=== PATIENT | female | born 1950 | race Caucasian/White ===

== ENCOUNTER 2024-04-08 16:11 | Emergency (ER) | payer MEDICARE ==
[~2024-04-08] VITALS: Ht 162.6 cm; Wt 86.6 kg
[2024-04-08 16:12] VITALS: TEMP 98
[2024-04-08 17:00] LABS: BASOPHILS % (AUTO) 0.9 % (0-1); EOSINOPHILS # (AUTO) 0.2 X10'3 (0-0.9); HEMATOCRIT 39.3 % (35.0-45.0); HEMOGLOBIN 13.3 g/dl (12.0-16.0); LYMPHOCYTES # (AUTO) 1.6 X10'3 (1.1-4.8); LYMPHOCYTES % (AUTO) 36.1 % (21-51); MEAN CORPUSCULAR HEMOGLOBIN 34.9 PG (27.0-31.0); MEAN CORPUSCULAR HGB CONC 33.8 g/dL (33.0-36.5); MEAN CORPUSCULAR VOLUME 103.2 FL (78-98); MEAN PLATELET VOLUME 6.9 FL (7.4-10.4); MONOCYTES # (AUTO) 0.6 X10'3 (0-0.9); MONOCYTES % (AUTO) 13.4 % (2-12); NEUTROPHILS % (AUTO) 45.6 % (42-75); PLATELET COUNT 217 X10'3 (140-440); RED BLOOD COUNT 3.81 X10'6 (4.20-5.60); RED CELL DISTRIBUTION WIDTH 20.1 % (11.5-14.5); WHITE BLOOD COUNT 4.3 X10'3 (4.5-11.0)
[2024-04-08 17:10] LABS: ALANINE AMINOTRANSFERASE 23 U/L (12-78); ALBUMIN 3.6 G/DL (3.4-5.0); ALBUMIN/GLOBULIN RATIO 0.8 (1.1-1.5); ALKALINE PHOSPHATASE 134 IU/L (46-116); ANION GAP 8 (8-16); ASPARTATE AMINO TRANSFERASE 58 U/L (10-37); BILIRUBIN,TOTAL 0.4 MG/DL (0.1-1.0); BLOOD UREA NITROGEN 9 MG/DL (7-18); BUN/CREATININE RATIO 9.9 (10.0-20.0); CALCIUM 8.4 MG/DL (8.5-10.1); CHLORIDE 109 MMOL/L (99-107); CREATININE 0.91 MG/DL (0.40-0.90); GLUCOSE 106 MG/DL (70-104); POTASSIUM 3.9 MMOL/L (3.5-5.1); SODIUM 149 MMOL/L (135-145); TOTAL PROTEIN 8.1 G/DL (6.4-8.2); eCRCL 48 ML/MIN; eGFR 61 ML/MIN
[2024-04-08 17:19] LABS: PRO BRAIN NATRIURETIC PEPTIDE 133 PG/ML (0-125)
[2024-04-08 17:21] LABS: ANISOCYTOSIS 3+; LARGE PLATELETS FEW; PLATELET ESTIMATE NORMAL
[2024-04-08 18:16] VITALS: BP 138/89; PULSE 87; O2SAT 92
[2024-04-08 18:46] VITALS: RESP 18
== END 2024-04-08 18:55 | disposition home or self-care (01) ==
LOC: ER 16:12
DX: J45.901 Unspecified asthma with (acute) exacerbation (principal)
CPT/HCPCS: 36415; 71045; 80053; 83880; 84484; 85008; 85025; 93005; 99285

== ENCOUNTER 2024-04-30 07:26 | Emergency (ER) | payer MEDICARE ==
[~2024-04-30] VITALS: Ht 167.6 cm; Wt 86.4 kg
[2024-04-30 07:32] VITALS: TEMP 98.2
[2024-04-30 11:10] LABS: BASOPHILS # (AUTO) 0.1 X10'3 (0-0.2); EOSINOPHILS # (AUTO) 0.3 X10'3 (0-0.9); EOSINOPHILS % (AUTO) 6.3 % (0-6); HEMATOCRIT 40.8 % (35.0-45.0); HEMOGLOBIN 13.7 g/dl (12.0-16.0); LYMPHOCYTES # (AUTO) 1.5 X10'3 (1.1-4.8); LYMPHOCYTES % (AUTO) 31.2 % (21-51); MEAN CORPUSCULAR HEMOGLOBIN 34.5 PG (27.0-31.0); MEAN CORPUSCULAR HGB CONC 33.7 g/dL (33.0-36.5); MEAN CORPUSCULAR VOLUME 102.4 FL (78-98); MEAN PLATELET VOLUME 6.6 FL (7.4-10.4); MONOCYTES # (AUTO) 0.5 X10'3 (0-0.9); MONOCYTES % (AUTO) 11.4 % (2-12); NEUTROPHILS # (AUTO) 2.3 X10'3 (1.8-7.7); NEUTROPHILS % (AUTO) 49.1 % (42-75); PLATELET COUNT 284 X10'3 (140-440); RED BLOOD COUNT 3.98 X10'6 (4.20-5.60); RED CELL DISTRIBUTION WIDTH 18.9 % (11.5-14.5); WHITE BLOOD COUNT 4.8 X10'3 (4.5-11.0)
[2024-04-30] MEDS ORDERED: ALBU8HFA INH (11:19)
[2024-04-30 11:27] LABS: APTT 26 SECONDS (22-32); INR 1.1 INR
[2024-04-30] MEDS: dexamethasone 4mg tablet PO ONE (11:35)
[2024-04-30] MEDS: albuterol 2.5 MG/3 ML nebule NEB ONE (11:35)
[2024-04-30 11:38] VITALS: PULSE 87; RESP 20; O2SAT 94
[2024-04-30 11:38] LABS: ALANINE AMINOTRANSFERASE 21 U/L (12-78); ALBUMIN 3.4 G/DL (3.4-5.0); ALBUMIN/GLOBULIN RATIO 0.8 (1.1-1.5); ALKALINE PHOSPHATASE 142 IU/L (46-116); ANION GAP 9 (8-16); ASPARTATE AMINO TRANSFERASE 46 U/L (10-37); BILIRUBIN,TOTAL 0.5 MG/DL (0.1-1.0); BLOOD UREA NITROGEN 11 MG/DL (7-18); BUN/CREATININE RATIO 11.8 (10.0-20.0); CALCIUM 8.8 MG/DL (8.5-10.1); CHLORIDE 104 MMOL/L (99-107); CREATININE 0.93 MG/DL (0.40-0.90); GLUCOSE 92 MG/DL (70-104); POTASSIUM 3.7 MMOL/L (3.5-5.1); SODIUM 141 MMOL/L (135-145); TOTAL CARBON DIOXIDE 28.3 MMOL/L (24-32); TOTAL PROTEIN 7.8 G/DL (6.4-8.2); eCRCL 50 ML/MIN; eGFR 59 ML/MIN
[2024-04-30 11:39] LABS: ETHANOL 223 MG/DL (<10); MAGNESIUM 1.5 MG/DL (1.5-2.4); PRO BRAIN NATRIURETIC PEPTIDE 149 PG/ML (0-125)
[2024-04-30 11:42] VITALS: PULSE 82; RESP 22; O2SAT 98
[2024-04-30 13:01] VITALS: BP 137/79; PULSE 79; RESP 19; O2SAT 95
== END 2024-04-30 13:04 | disposition home or self-care (01) ==
LOC: ER 07:28
DX: J45.901 Unspecified asthma with (acute) exacerbation (principal); E78.00 Pure hypercholesterolemia, unspecified; K21.9 Gastro-esophageal reflux disease without esophagitis; F10.129 Alcohol abuse with intoxication, unspecified; Y90.7 Blood alcohol level of 200-239 mg/100 ml
CPT/HCPCS: 36415; 71045; 80053; 83735; 83880; 84484; 85025; 85610; 85730; 94640; 99284; G0480; 80320; 94760

== ENCOUNTER 2024-05-18 19:01 | Inpatient (IN) | payer MEDICARE ==
[~2024-05-18] VITALS: Ht 167.6 cm; Wt 89.0 kg
[~2024-05-18 19:01] MED LIST: ALBU8HFA INH
[2024-05-18 19:46] LABS: BASOPHILS # (AUTO) 0.1 X10'3 (0-0.2); BASOPHILS % (AUTO) 1.2 % (0-1); EOSINOPHILS # (AUTO) 0.4 X10'3 (0-0.9); EOSINOPHILS % (AUTO) 9.3 % (0-6); HEMOGLOBIN 13.9 g/dl (12.0-16.0); LYMPHOCYTES # (AUTO) 1.3 X10'3 (1.1-4.8); LYMPHOCYTES % (AUTO) 29.7 % (21-51); MEAN CORPUSCULAR HEMOGLOBIN 34.7 PG (27.0-31.0); MEAN CORPUSCULAR HGB CONC 33.2 g/dL (33.0-36.5); MEAN CORPUSCULAR VOLUME 104.6 FL (78-98); MEAN PLATELET VOLUME 6.6 FL (7.4-10.4); MONOCYTES # (AUTO) 0.6 X10'3 (0-0.9); MONOCYTES % (AUTO) 13.2 % (2-12); NEUTROPHILS # (AUTO) 2.1 X10'3 (1.8-7.7); NEUTROPHILS % (AUTO) 46.6 % (42-75); PLATELET COUNT 212 X10'3 (140-440); RED BLOOD COUNT 4.02 X10'6 (4.20-5.60); RED CELL DISTRIBUTION WIDTH 21.7 % (11.5-14.5); WHITE BLOOD COUNT 4.5 X10'3 (4.5-11.0)
[2024-05-18 20:03] LABS: ALANINE AMINOTRANSFERASE 28 U/L (12-78); ALBUMIN 3.4 G/DL (3.4-5.0); ALBUMIN/GLOBULIN RATIO 0.8 (1.1-1.5); ALKALINE PHOSPHATASE 138 IU/L (46-116); ANION GAP 10 (8-16); ASPARTATE AMINO TRANSFERASE 53 U/L (10-37); BILIRUBIN,TOTAL 0.5 MG/DL (0.1-1.0); BLOOD UREA NITROGEN 15 MG/DL (7-18); BUN/CREATININE RATIO 17.9 (10.0-20.0); CALCIUM 8.6 MG/DL (8.5-10.1); CHLORIDE 106 MMOL/L (99-107); CREATININE 0.84 MG/DL (0.40-0.90); GLUCOSE 124 MG/DL (70-104); POTASSIUM 3.6 MMOL/L (3.5-5.1); SODIUM 145 MMOL/L (135-145); TOTAL CARBON DIOXIDE 28.6 MMOL/L (24-32); TOTAL PROTEIN 7.6 G/DL (6.4-8.2); eCRCL 56 ML/MIN; eGFR 66 ML/MIN
[2024-05-18 20:08] LABS: PLATELET ESTIMATE NORMAL
[2024-05-18] MEDS: ipratropium/albuterol 3ml nebule NEB ONE (20:08)
[2024-05-18 20:10] LABS: ANISOCYTOSIS 2+; MICROCYTOSIS FEW; PRO BRAIN NATRIURETIC PEPTIDE 89 PG/ML (0-125)
[2024-05-18 20:11] VITALS: RESP 24; O2SAT 93
[2024-05-18 20:14] VITALS: RESP 23; O2SAT 94
[2024-05-18] MEDS: magnesium sulf-water 2g/50mL 50 ML IV ONE (21:32)
[2024-05-18] MEDS: methylPREDNISolone sod succ 125mg/2ml vial IV ONE (21:32)
[2024-05-18] MEDS ORDERED: potassium Cl 40MEQ/1/2NS 520ml 520 ML IV PRN (22:30)
[2024-05-18] MEDS ORDERED: HYDROcodone/acetaminophen 10/325mg tab PO PRN (22:30)
[2024-05-18] MEDS ORDERED: ondansetron/PF 4mg/2ml inj IV PRN (22:30)
[2024-05-18] MEDS ORDERED: magnesium sulf-water 4G/100mL 100 ML IV PRN (22:30)
[2024-05-18] MEDS ORDERED: dextrose 50%-water 50ml dispensing syringe IV PRN (22:30)
[2024-05-18] MEDS ORDERED: magnesium hydroxide 30ml (MOM) UD suspension PO PRN (22:30)
[2024-05-18] MEDS ORDERED: magnesium sulf-water 2g/50mL 50 ML IV PRN (22:30)
[2024-05-18] MEDS ORDERED: potassium Cl 20 mEq SR tablet PO PRN ×2 (22:30)
[2024-05-18] MEDS ORDERED: mag hydrox/Alum hydrox/simeth 30ml oral suspension PO PRN (22:30)
[2024-05-18] MEDS ORDERED: acetaminophen 325mg tablet PO PRN (22:30)
[2024-05-18] MEDS ORDERED: HYDROcodone/acetaminophen 5mg/325mg tablet PO PRN (22:30)
[2024-05-18] MEDS ORDERED: magnesium Cl slow-release 64mg tablet PO PRN (22:30)
[2024-05-18] MEDS ORDERED: ipratropium/albuterol 3ml nebule NEB PRN (22:40)
[2024-05-18] MEDS: methylPREDNISolone sod succ 125mg/2ml vial IV SCH (22:40)
[2024-05-18 22:46] LABS: ETHANOL 244 MG/DL (<10)
[2024-05-18 22:52] LABS: MAGNESIUM 1.7 MG/DL (1.5-2.4); PHOSPHORUS 3.5 MG/DL (2.3-4.5)
[2024-05-18 23:23] VITALS: PULSE 117; RESP 18; O2SAT 93
[2024-05-18 23:29] VITALS: PULSE 108; RESP 18
[2024-05-18] MEDS: budesonide 0.5mg/2ml UD nebule IH SCH (23:41)
[2024-05-18] MEDS: ipratropium/albuterol 3ml nebule NEB SCH (23:42)
[2024-05-18] MEDS: amox tr/potassium clavulanate 500mg/125mg TAB PO SCH (23:50)
[2024-05-19] VITALS (14 sets, daily range): BP systolic 142–175; BP diastolic 81–94; PULSE 71–116; RESP 15–24; TEMP 97.9–98.2; O2SAT 91–98
[2024-05-19] MEDS: gabapentin 300mg capsule PO SCH (00:44)
[2024-05-19] MEDS: LORazepam 2 mg/ml vial IV PRN (00:45)
[2024-05-19 00:47] LABS: BILIRUBIN,URINE NEGATIVE (Neg); CLARITY,URINE CLEAR (Clear); COLOR,URINE YELLOW (Yellow); GLUCOSE, URINE NEGATIVE (Neg); KETONES,URINE NEGATIVE (Neg); LEUKOCYTE ESTERASE ,URINE NEGATIVE (Neg); NITRITES, URINE NEGATIVE (Neg); OCCULT BLOOD,URINE NEGATIVE (Neg); PH,URINE 5.5 (4.8-8.0); PROTEIN,URINE 100 mg/dl (Neg); UROBILINOGEN,URINE 0.2 E.U/dL (0.2-1.0)
[2024-05-19 00:54] LABS: URINE AMPHETAMINE SCREEN NEGATIVE (Neg); URINE BARBITUATE SCREEN NEGATIVE (Neg); URINE BENZODIAZEPINES SCREEN NEGATIVE (Neg); URINE CANNABINOID SCREEN NEGATIVE (Neg); URINE COCAINE SCREEN NEGATIVE (Neg); URINE METHADONE SCREEN NEGATIVE (Neg); URINE OPIATE SCREEN NEGATIVE (Neg); URINE PHENCYCLIDINE SCREEN NEGATIVE (Neg)
[2024-05-19 00:56] LABS: UA COLLECTION TYPE VOIDED
[2024-05-19 00:58] LABS: AMORPHOUS URATES 3+; BACTERIA,URINE NONE SEEN /HPF (Neg); RBC,URINE NONE SEEN /HPF (0-2); SQUAMOUS EPITHELIAL CELL,UR MODERATE /LPF (FEW); WBC,URINE NONE SEEN /HPF (0-4)
[2024-05-19] MEDS ORDERED: LOSA25TA41 (01:23)
[2024-05-19] MEDS ORDERED: GABA-1405 PO (01:23)
[2024-05-19] MEDS ORDERED: ESCI-8 PO (01:23)
[2024-05-19] MEDS ORDERED: FURO20TA4 PO (01:23)
[2024-05-19 06:13] LABS: BASOPHILS % (AUTO) 0.5 % (0-1); EOSINOPHILS % (AUTO) 0.1 % (0-6); HEMATOCRIT 40.9 % (35.0-45.0); HEMOGLOBIN 13.4 g/dl (12.0-16.0); LYMPHOCYTES # (AUTO) 0.2 X10'3 (1.1-4.8); LYMPHOCYTES % (AUTO) 6.7 % (21-51); MEAN CORPUSCULAR HEMOGLOBIN 34.5 PG (27.0-31.0); MEAN CORPUSCULAR HGB CONC 32.8 g/dL (33.0-36.5); MEAN CORPUSCULAR VOLUME 105.2 FL (78-98); MEAN PLATELET VOLUME 6.9 FL (7.4-10.4); MONOCYTES % (AUTO) 0.6 % (2-12); NEUTROPHILS # (AUTO) 3.3 X10'3 (1.8-7.7); NEUTROPHILS % (AUTO) 92.1 % (42-75); PLATELET COUNT 206 X10'3 (140-440); RED BLOOD COUNT 3.89 X10'6 (4.20-5.60); RED CELL DISTRIBUTION WIDTH 21.6 % (11.5-14.5); WHITE BLOOD COUNT 3.6 X10'3 (4.5-11.0)
[2024-05-19 06:33] LABS: ALANINE AMINOTRANSFERASE 23 U/L (12-78); ALBUMIN/GLOBULIN RATIO 0.7 (1.1-1.5); ALKALINE PHOSPHATASE 143 IU/L (46-116); ANION GAP 14 (8-16); ASPARTATE AMINO TRANSFERASE 50 U/L (10-37); BILIRUBIN,TOTAL 0.6 MG/DL (0.1-1.0); BLOOD UREA NITROGEN 13 MG/DL (7-18); BUN/CREATININE RATIO 13.3 (10.0-20.0); CALCIUM 8.2 MG/DL (8.5-10.1); CHLORIDE 103 MMOL/L (99-107); CHOL/HDL RATIO 2.4 (0.00-4.99); CHOLESTEROL 212 MG/DL (0-200); CREATININE 0.98 MG/DL (0.40-0.90); GLUCOSE 254 MG/DL (70-104); HDL CHOLESTEROL 89 MG/DL (35-60); POTASSIUM 4.1 MMOL/L (3.5-5.1); SODIUM 139 MMOL/L (135-145); TOTAL PROTEIN 7.3 G/DL (6.4-8.2); TRIGLYCERIDES 86 MG/DL (20-135); eCRCL 48 ML/MIN; eGFR 56 ML/MIN
[2024-05-19 07:10] LABS: LDL CHOLESTEROL 107 MG/DL (50-100)
[2024-05-19] MEDS: K and/or MAG REPLACEMENT MC SCH (08:00)
[2024-05-19] MEDS: fluconazole 100mg tablet PO SCH (08:12)
[2024-05-19] MEDS: folic acid 1mg/0.2ml inj IV SCH (08:22)
[2024-05-19] MEDS: thiamine 100mg/ml 2ml inj. IV SCH (08:22)
[2024-05-19] MEDS: enoxaparin 40mg/0.4ml syringe SUBCUT SCH (08:25)
[2024-05-19] MEDS: terbinafine cream 30gm TP SCH (08:26)
[2024-05-19] MEDS: ipratropium/albuterol 3ml nebule NEB SCH (08:46)
[2024-05-19] MEDS: CefTRIAXone/D5W-Rocephin 1gm 50 ML IV SCH (13:16)
[2024-05-19 13:40] LABS: D-DIMER 2.09 MG/L FEU (0-0.50)
[2024-05-19 13:52] LABS: CREATINE KINASE 79 U/L (26-192); LIPASE 15 U/L (16-77); PHOSPHORUS 2.3 MG/DL (2.3-4.5); THYROID STIMULATING HORMONE 0.41 ulU/ml (0.34-4.50)
[2024-05-19] MEDS: azithromycin/NS 500mg/250ml 250 ML IV SCH (14:19)
[2024-05-20] VITALS (12 sets, daily range): BP systolic 128–165; BP diastolic 74–90; PULSE 64–89; RESP 16–22; TEMP 97–98.6; O2SAT 94–98
[2024-05-20 05:59] LABS: BASOPHILS % (AUTO) 0.1 % (0-1); EOSINOPHILS % (AUTO) 0 % (0-6); HEMATOCRIT 37.9 % (35.0-45.0); HEMOGLOBIN 12.9 g/dl (12.0-16.0); LYMPHOCYTES # (AUTO) 0.3 X10'3 (1.1-4.8); LYMPHOCYTES % (AUTO) 4.7 % (21-51); MEAN CORPUSCULAR HEMOGLOBIN 35.6 PG (27.0-31.0); MEAN CORPUSCULAR HGB CONC 34.1 g/dL (33.0-36.5); MEAN CORPUSCULAR VOLUME 104.4 FL (78-98); MEAN PLATELET VOLUME 7.2 FL (7.4-10.4); MONOCYTES # (AUTO) 0.3 X10'3 (0-0.9); NEUTROPHILS # (AUTO) 6.2 X10'3 (1.8-7.7); NEUTROPHILS % (AUTO) 91.2 % (42-75); PLATELET COUNT 195 X10'3 (140-440); RED BLOOD COUNT 3.63 X10'6 (4.20-5.60); RED CELL DISTRIBUTION WIDTH 21.2 % (11.5-14.5); WHITE BLOOD COUNT 6.8 X10'3 (4.5-11.0)
[2024-05-20 06:20] LABS: ALANINE AMINOTRANSFERASE 24 U/L (12-78); ALBUMIN 3.1 G/DL (3.4-5.0); ALBUMIN/GLOBULIN RATIO 0.7 (1.1-1.5); ALKALINE PHOSPHATASE 120 IU/L (46-116); ANION GAP 9 (8-16); ASPARTATE AMINO TRANSFERASE 29 U/L (10-37); BILIRUBIN,TOTAL 0.8 MG/DL (0.1-1.0); BLOOD UREA NITROGEN 19 MG/DL (7-18); BUN/CREATININE RATIO 19.8 (10.0-20.0); CALCIUM 8.7 MG/DL (8.5-10.1); CHLORIDE 100 MMOL/L (99-107); CREATININE 0.96 MG/DL (0.40-0.90); GLUCOSE 291 MG/DL (70-104); SODIUM 136 MMOL/L (135-145); TOTAL CARBON DIOXIDE 27.1 MMOL/L (24-32); TOTAL PROTEIN 7.3 G/DL (6.4-8.2); eCRCL 49 ML/MIN; eGFR 57 ML/MIN
[2024-05-20] MEDS: gabapentin 300mg capsule PO SCH (19:34)
[2024-05-20] MEDS ORDERED: LORazepam 2 mg/ml vial IV PRN (22:30)
[2024-05-20] MEDS ORDERED: DEXTROSE 15 GM of carb/4 tabs (each vial/BOTTLE has 4 tablets) PO PRN ×2 (22:55)
[2024-05-20] MEDS ORDERED: dextrose 50%-water 50ml dispensing syringe IV PRN ×2 (22:55)
[2024-05-20] MEDS ORDERED: glucagon, human recombinant 1mg kit SUBCUT PRN (22:55)
[2024-05-20] MEDS: INSULIN LISPRO 100 UNIT/ML INSULN.PEN MULTI-DOSE SQ ONE (23:48)
[2024-05-21 05:58] LABS: BASOPHILS % (AUTO) 0 % (0-1); EOSINOPHILS % (AUTO) 0 % (0-6); HEMATOCRIT 39.2 % (35.0-45.0); HEMOGLOBIN 13.2 g/dl (12.0-16.0); LYMPHOCYTES # (AUTO) 0.3 X10'3 (1.1-4.8); LYMPHOCYTES % (AUTO) 3.3 % (21-51); MEAN CORPUSCULAR HEMOGLOBIN 35.3 PG (27.0-31.0); MEAN CORPUSCULAR HGB CONC 33.7 g/dL (33.0-36.5); MEAN CORPUSCULAR VOLUME 104.5 FL (78-98); MEAN PLATELET VOLUME 7.8 FL (7.4-10.4); MONOCYTES # (AUTO) 0.3 X10'3 (0-0.9); MONOCYTES % (AUTO) 3.9 % (2-12); NEUTROPHILS # (AUTO) 8.1 X10'3 (1.8-7.7); NEUTROPHILS % (AUTO) 92.8 % (42-75); PLATELET COUNT 196 X10'3 (140-440); RED BLOOD COUNT 3.75 X10'6 (4.20-5.60); WHITE BLOOD COUNT 8.7 X10'3 (4.5-11.0)
[2024-05-21 06:00] VITALS: BP 173/87; PULSE 64; RESP 18; TEMP 97.5; O2SAT 96
[2024-05-21 06:59] LABS: ALANINE AMINOTRANSFERASE 23 U/L (12-78); ALBUMIN 3.1 G/DL (3.4-5.0); ALBUMIN/GLOBULIN RATIO 0.7 (1.1-1.5); ALKALINE PHOSPHATASE 132 IU/L (46-116); ANION GAP 9 (8-16); ASPARTATE AMINO TRANSFERASE 31 U/L (10-37); BILIRUBIN,TOTAL 0.8 MG/DL (0.1-1.0); BLOOD UREA NITROGEN 25 MG/DL (7-18); BUN/CREATININE RATIO 22.5 (10.0-20.0); CALCIUM 8.6 MG/DL (8.5-10.1); CHLORIDE 97 MMOL/L (99-107); CREATININE 1.11 MG/DL (0.40-0.90); GLUCOSE 329 MG/DL (70-104); POTASSIUM 3.8 MMOL/L (3.5-5.1); SODIUM 132 MMOL/L (135-145); TOTAL CARBON DIOXIDE 25.8 MMOL/L (24-32); TOTAL PROTEIN 7.3 G/DL (6.4-8.2); eCRCL 42 ML/MIN; eGFR 48 ML/MIN
[2024-05-21] MEDS: INSULIN LISPRO 100 UNIT/ML INSULN.PEN MULTI-DOSE SQ SCH (08:01)
[2024-05-21 08:41] VITALS: PULSE 80; RESP 24; O2SAT 95
[2024-05-21 08:53] VITALS: PULSE 86; RESP 20
[2024-05-21 10:00] VITALS: BP 144/86; PULSE 100; RESP 20; TEMP 98.6; O2SAT 96
[2024-05-21] MEDS ORDERED: hydrALAZINE 20mg/ml inj. IV PRN (13:45)
[2024-05-21] MEDS ORDERED: FLUT1DIS4 INH (13:47)
[2024-05-21] MEDS ORDERED: PRED10TA23 PO (13:47)
[2024-05-21] MEDS ORDERED: CEFD300C3 PO (13:47)
[2024-05-21] MEDS ORDERED: NOR5T PO (13:48)
[2024-05-21] MEDS: insulin glargine (Lantus) VIAL- multi-dose SQ ONE (14:16)
[2024-05-21 14:25] VITALS: BP_SYST 173
[2024-05-21] MEDS: losartan 25mg tablet PO SCH (14:25)
[2024-05-21] MEDS: LORazepam 1 MG tablet PO PRN (14:25)
[2024-05-21 14:26] VITALS: PULSE 80
[2024-05-21] MEDS: amLODIPine 5mg tablet PO SCH (14:26)
[2024-05-22] MEDS ORDERED: LORazepam 2 mg/ml vial IV PRN (22:30)
[2024-05-22] MEDS ORDERED: LORazepam 1 MG tablet PO PRN (22:30)
[2024-05-23] MEDS ORDERED: folic acid 1mg tablet PO SCH (08:00)
[2024-05-23] MEDS ORDERED: thiamine 100mg tablet PO SCH (08:00)
[2024-05-26] MEDS ORDERED: CHLO25CA10 PO (15:27)
[2024-05-26] MEDS ORDERED: FOLI1TAB27 PO (16:06)
[2024-05-26] MEDS ORDERED: CEFD300C3 PO (16:06)
[2024-05-26] MEDS ORDERED: thiamine tablet PO (16:06)
[2024-05-26] MEDS ORDERED: PRED10TA23 PO (16:07)
== END 2024-05-21 17:48 | disposition home or self-care (01) | DRG 189 ==
LOC: ER 19:02 → ED HOLD 22:36 → EDBEDREQ 23:45 → ORTHO 4S 05-19 00:22
PROVIDERS: ADMIT Internal Medicine; ATTEND Family Medicine
PROC: CB121ZZ Planar Nuclear Medicine Imaging of Lungs and Bronchi using Technetium 99m (Tc-99m) (ICD-10-PCS; principal; 2024-05-21)
DX: J96.01 Acute respiratory failure with hypoxia (principal); J45.901 Unspecified asthma with (acute) exacerbation; F32.A Depression, unspecified; G62.9 Polyneuropathy, unspecified; Z20.822 Contact with and (suspected) exposure to COVID-19; E66.811 Obesity, class 1; G89.29 Other chronic pain; Z60.2 Problems related to living alone; K21.9 Gastro-esophageal reflux disease without esophagitis; F10.20 Alcohol dependence, uncomplicated; B35.8 Other dermatophytoses; E78.00 Pure hypercholesterolemia, unspecified; I10 Essential (primary) hypertension; Z68.31 Body mass index [BMI] 31.0-31.9, adult; Z87.891 Personal history of nicotine dependence; Z88.5 Allergy status to narcotic agent
CPT/HCPCS: 36415; 71045; 78582; 80053; 80061; 80305; 80320; 81001; 82550; 82948; 83036; 83690; 83735; 83880; 84100; 84145; 84443; 84484; 85008; 85025; 85379; 87081; 87502; 87503; 87811; 93005; 94640; 94760; 97116; 97162; 97530; 99285; A4615; A6250; A6258; A9539; A9540; G0378; J0456; J0696; J1650; J1815; J2060; J2919; J3411; J3490; J7040

== ENCOUNTER 2025-01-27 02:57 | Emergency (ER) | payer MEDICARE ==
[~2025-01-27] VITALS: Ht 167.6 cm; Wt 93.6 kg
[~2025-01-27 02:57] MED LIST changes: -ALBU8HFA INH; +ALBU90AE INH; +CEFD300C3 PO; +ESCI10TA PO; +FAMO20TA8 PO; +FLUT1DIS4 INH; +FOLI1TAB27 PO; +FURO20TA4 PO; +GABA-1405 PO; +LACT1CAP74 PO; +LOSA25TA41; +PRED10TA23 PO; +thiamine tablet PO
--- NOTE | 2025-01-27 03:05 | Physician Documentation ---
History of Present Illness ~ Stated Complaint: SOB Time Seen by MD: 03:05 Primary Medical Doctor: OMAR CALDERON AT [facility] 74-year-old female, history of asthma, on 2 L chronic oxygen at home, presenting with shortness of breath Per EMS, the patient arrives from [facility], where she reported shortness of breath. They say that she had clear lung sounds, but it cleared quite anxious, intermittently tearful, intermittently screaming. No treatments given. Here in the ED, the patient does appear quite anxious. She tells me that it is difficult to breathe and she has discomfort in her chest. She has been using her nebulizers at home without relief. She denies any fevers, congestion, productive cough, abdominal pain, nausea vomiting or diarrhea, leg pain or swelling Per chart review, the patient was admitted and discharged from the hospital 6 days ago, for an asthma exacerbation and possible pneumonia. Medication Reconciliation Allergies: Coded Allergies: codeine (Verified Allergy, Intermediate, HALLUCINATIONS, 01/27/25) Scheduled Escitalopram Oxalate (Lexapro), 1 TAB PO DAILY, (Reported) Famotidine (Famotidine), 2 TAB PO HS, (Reported) Fluticasone/Salmeterol (Advair 250-50 Diskus), 1 PUFFS INH Q12H Folic Acid* (Folic Acid*), 1 MG PO DAILY Furosemide (Furosemide), 2 TAB PO DAILY, (Reported) Gabapentin (Gabapentin), 1 TAB PO TID, (Reported) Lactobacillus Rhamnosus GG (Culturelle), 1 CAP PO DAILY Losartan Potassium (Losartan Potassium), 1 DAILY, (Reported) Prednisone (Prednisone), 10 MG PO DAILY [thiamine tablet], 100 MG PO DAILY Scheduled PRN Albuterol Sulfate (Proair Respiclick), 2 PUFFS INH Q4HPRN PRN for shortness of breath Discontinued Medications Amlodipine Besylate (Amlodipine Besylate), 2 TAB PO DAILY Discontinued Reason: patient no longer taking Azithromycin (Zithromax), 1 TAB PO DAILY Discontinued Reason: Auto Discontinued Carvedilol (Carvedilol), 1 TAB PO Q12H Discontinued Reason: patient no longer taking Cefdinir* (Cefdinir*), 1 CAP PO Q12H Discontinued Reason: Auto Discontinued Chlordiazepoxide Hcl (Librium), 1 CAP PO Q4H PRN for anxiety Discontinued Reason: patient no longer taking Escitalopram Oxalate (Escitalopram Oxalate), 1 TAB PO PRN PRN for for anxiety/agitation, (Reported) Discontinued Reason: Other Losartan Potassium (Losartan Potassium), 50 MG PO DAILY Discontinued Reason: patient no longer taking [gabapentin capsule], 600 MG PO BID Discontinued Reason: patient no longer taking Past Medical History Past Medical History: High Cholesterol, Asthma, GERD, Chronic Pain Past Surgical History: noncontributory Patient History: Diabetes mellitus in brother FH: heart attack MOTHER, , Age: 60 years and older FH: stroke MOTHER, , Age: 60 years and older Alcohol Use: Heavy Drug Use: none Lives In: Home Review of Systems Constitutional: Denies: fever Respiratory: Reports: shortness of breath, pain with breathing Physical Exam Physical Exam General: This is a very anxious appearing older woman, tearful Heart: Regular rate and rhythm, normal-appearing peripheral perfusion Lungs: Clear breath sounds bilateral, no wheezing. The patient has intermittent rapid shallow breathing and intermittent normal respiratory rate. Abdomen: Soft, nondistended, nontender all quadrants including in the epigastric region Extremities: Warm and well-perfused, trace edema in bilateral ankles Neuro: Alert and oriented Psychiatric: Appears severely anxious, with a labile affect, intermittently tearful Progress Results/Orders Results/Orders Orders - PRITI GOMEZ MD Chest,Single View (01/27/25 03:07) Monitor (01/27/25 03:07) Saline Lock (01/27/25 03:07) Oxygen (01/27/25 03:07) Hs Troponin I W Calculations (01/27/25 06:07) Completed Orders - PRITI GOMEZ MD Chest,Single View (01/27/25 03:07) Cbc/Diff (01/27/25 03:07) BMP (01/27/25 03:07) PBNP (01/27/25 03:07) Electrocardiogram (01/27/25 03:07) Hs Troponin I W Calculations (01/27/25 03:07) Hs Troponin I W Calculations (01/27/25 05:07) Ipratropium/Albuterol Nebule (Ipratrop/A (01/27/25 05:48) Medications Received in ER Medications (Trade) Dose Ordered Sig/Sherwin Route PRN Reason Start Time Stop Time Status Last Admin Dose Admin (ipratrop/ albuterol 0.5-3(2.5) MG/3ml nebule) 3 ml ONCE ONCE NEB 01/27/25 05:48 01/27/25 05:49 DC 01/27/25 06:27 3 ML Vital Signs 01/27/25 01/27/25 01/27/25 01/27/25 03:03 03:18 03:18 03:21 Temp 97.7 Pulse 95 91 Resp 20 18 20 B/P (MAP) 134/91 121/84 (96) Pulse Ox 96 96 96 O2 Delivery Nasal Cannula* O2 Flow Rate 2.0 2 2.0 FiO2 28 01/27/25 01/27/25 01/27/25 04:15 05:11 06:03 Pulse 102 97 86 Resp 18 18 18 B/P (MAP) 141/90 (107) 148/96 (113) 150/93 (112) Pulse Ox 98 95 90 O2 Flow Rate 0 2.0 3.0 Laboratory Tests Test 01/27/25 03:31 01/27/25 04:53 White Blood Count 5.0 Red Blood Count 4.23 Hemoglobin 12.9 Hematocrit 39.1 Mean Corpuscular Volume 92.4 Mean Corpuscular Hemoglobin 30.5 Mean Corpuscular Hemoglobin Concent 33.0 Red Cell Distribution Width 15.9 H Platelet Count 213 Mean Platelet Volume 6.6 L Neutrophils (%) (Auto) 47.6 Lymphocytes (%) (Auto) 33.0 Monocytes (%) (Auto) 13.6 H Eosinophils (%) (Auto) 4.8 Basophils (%) (Auto) 1.0 Neutrophils # (Auto) 2.4 Lymphocytes # (Auto) 1.7 Monocytes # (Auto) 0.7 Eosinophils # (Auto) 0.2 Basophils # (Auto) 0.0 CBC Comment Sodium Level 146 H Potassium Level 3.3 L Chloride Level 111 H Carbon Dioxide Level 28.0 Anion Gap 7 L Blood Urea Nitrogen 17 Creatinine 1.05 H Estimated GFR/1.73 m2 51 BUN/Creatinine Ratio 16.2 Glucose Level 142 H Calcium Level 7.9 L Troponin I High Sensitivity 7 8 Pro-B-Type Natriuretic Peptide 191 H Albumin 3.0 L Chemistry Comments Troponin I High Sens Percent Delta 14 Troponin I Hi Sens Absolute Change 1 EKG/XRAY/CT/US/VASC/MRI EKG : Additional Comment I personally interpreted the EKG and this shows: Sinus rhythm, rate 93, QTC 447, poor baseline but no STEMI Chest X-Ray : Additional Comments I personally interpreted the x-ray, and it shows: Mild pulmonary edema, no focal consolidation, no pneumothorax Medical Decision Making Differential Dx:Considerations: Include: anxiety, asthma, bronchitis, cardiogenic shock, CHF, COPD, dysrhythmia, myocardial infarction, pneumonia, upper resp. infection Additional Infomation The patient presents with shortness of breath. On exam, she appears very anxious but has clear breath sounds, no significant wheezing. Her EKG shows no significant ischemic changes. Chest x-ray has some pulmonary edema but appears improved from previous. Labs are reassuring, BNP is not elevated compared to previous. After observation, the patient fell asleep and then no longer appeared to have increased work of breathing. It is unclear if her symptoms are related to asthma, anxiety, congestive heart failure, or some unknown trigger, but without any intervention she appeared improved. She did request a nebulizer and was given this. Following this she was able to ambulate without significant increased work of breathing. She will be discharged home. I suspect a component of anxiety to her presentation. She has asthma treatments at home already. Departure Disposition: HOME / SELF CARE / HOMELESS Impression: Primary Impression: Difficulty breathing Additional Impression: Asthma Condition: Improved Discharge Instructions: Asthma, Adult, [id number] Referrals: NO PRIMARY CARE PROVIDER (PCP) Education Educated: Patient Educated regarding: diagnosis, treatment, need for follow up Signature Scribe Signature: na Attestation: PRITI Rojas MD Jan 27, 2025 03:05
--- NOTE | 2025-01-27 03:09 | ELECTROCARDIOGRAPH REPORT ---
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
--- NOTE | 2025-01-27 03:37 | RADIOLOGY REPORT ---
CHEST RADIOGRAPH Indication: CP Technique: Single frontal view of the chest was obtained COMPARISON: CT CTA CHEST PE W/ IV CONTRAST on DOS: 01/19/25, DI CHEST,SINGLE VIEW on DOS: 01/19/25, DI CHEST,SINGLE VIEW on DOS: 08/09/24, DI CHEST,SINGLE VIEW on DOS: 08/06/24, CT CTA CHEST PE W/ IV CONTRAST on DOS: 05/25/24 FINDINGS: Lines and Tubes: None Lungs: Stable appearing right hemidiaphragmatic elevation. Moderate diffuse increased prominence of the pulmonary vasculature. No evidence of focal consolidation. Pleura: No effusion. No pneumothorax. Cardiomediastinal contours: Cardiomegaly. Bones: Unremarkable IMPRESSION: 1. Cardiomegaly with moderate pulmonary vascular congestion.
[2025-01-27 04:04] LABS: MEAN PLATELET VOLUME 6.6 FL (7.4-10.4); RED CELL DISTRIBUTION WIDTH 15.9 % (11.5-14.5)
[2025-01-27 04:23] LABS: CREATININE 1.05 MG/DL (0.40-0.90); PRO BRAIN NATRIURETIC PEPTIDE 191 PG/ML (0-125); TOTAL CARBON DIOXIDE 28.0 MMOL/L (24-32); eCRCL 45 ML/MIN; eGFR 51 ML/MIN
[2025-01-27] MEDS: ipratropium/albuterol 3ml nebule NEB ONE (06:27)
[2025-01-27 06:29] VITALS: PULSE 98; RESP 18; O2SAT 96
[2025-01-27 06:35] VITALS: PULSE 81; RESP 18; O2SAT 98
[2025-01-27 07:53] VITALS: BP 140/98; PULSE 83; RESP 18; TEMP 97.7; O2SAT 98
== END 2025-01-27 07:57 | disposition home or self-care (01) ==
LOC: ER 02:57
DX: J45.909 Unspecified asthma, uncomplicated (principal); K21.9 Gastro-esophageal reflux disease without esophagitis; G89.29 Other chronic pain; E78.00 Pure hypercholesterolemia, unspecified; Z88.5 Allergy status to narcotic agent; Z79.899 Other long term (current) drug therapy
CPT/HCPCS: 36415; 71045; 80048; 83880; 84484; 85025; 93005; 94640; 94760; 99285